=== PATIENT | female | born 1960 | race Caucasian/White ===

== ENCOUNTER 2022-07-28 10:22 | Emergency (ER) | payer MEDICAID ==
[~2022-07-28] VITALS: Ht 165.1 cm; Wt 78.9 kg
[2022-07-28 10:28] VITALS: BP 135/88
--- NOTE | 2022-07-28 10:28 | NUR ---
BIB [facility],DROPPED "WEIGHTS ON HER RIGHT FOOT." PAIN IS 10/[address] NGUYEN AT BEDSIDE FOR EVAL.
== END 2022-07-28 11:33 | disposition home or self-care (01) ==
LOC: ER 10:25
DX: S90.31XA Contusion of right foot, initial encounter (principal); W20.8XXA Other cause of strike by thrown, projected or falling object, initial encounter; Y93.89 Activity, other specified; Y92.89 Other specified places as the place of occurrence of the external cause; Y99.8 Other external cause status
CPT/HCPCS: 73630-TC